=== PATIENT | male | born 1950 | race Caucasian/White ===

== ENCOUNTER → 2023-03-18 | Outpatient (CLI) | payer MEDICARE, OTHER ==
[~2023-03-18] MED LIST: ATOR40TA PO; Aspir 8181 MG PO; Avapro300 MG PO; CLOP75 PO; Fish Oil 10001000 MG PO; METO100ER PO; Multivitamin1 EAC1 PO; Omeprazole20 M1 PO; PANT20 PO; Synthroid175 MCG PO; [UNRECOGNIZED DRUG - REMARK]
== END | disposition home or self-care (01) ==
LOC: LAB SHORT 10:14 → PLD 10:14
DX: D04.61 Carcinoma in situ of skin of right upper limb, including shoulder (principal)
CPT/HCPCS: 88305

== ENCOUNTER 2024-06-14 08:58 | Day surgery (SDC) | payer MEDICARE, OTHER ==
[2024-06-14] VITALS (24 sets, daily range): BP systolic 85–144; BP diastolic 52–71
[~2024-06-14] VITALS: Ht 175.3 cm; Wt 100.5 kg
[~2024-06-14 08:58] MED LIST changes: +Lactated Ringer's 1,000 ML IV SCH; +TELM80 PO
[2024-06-14] MEDS ORDERED: Benzocaine Oral Spray 0.5ML UD ONE (10:01)
[2024-06-14] MEDS ORDERED: propofoL 20 ML IV ONE (10:01)
--- NOTE | 2024-06-14 10:26 | NUR ---
06/14/24 1025 [address] Gong HISTORY, CHART, MEDICATIONS AND ALLERGIES REVIEWED BEFORE START OF PROCEDURE. PATIENT CONFIRMS NPO STATUS AND AGREES WITH SCHEDULED PROCEDURE. 3-LEAD EKG REVIEWED WITH PHYSICIAN PRIOR TO START OF PROCEDURE. MONITOR INTACT WITH CONTINUOUS PULSE OXIMETRY,CAPNOGRAPHY, 3-LEAD EKG, INTERMITTENT BP. SUPPLEMENTAL O2 TO BE TITRATED THROUGHOUT PROCEDURE TO MAINTAIN O2 SATURATION ABOVE 90%. PATIENT DETERMINED TO BE ASA APPROPRIATE FOR PROPOFOL SEDATION PRIOR TO START OF PROCEDURE BY
[2024-06-14] MEDS ORDERED: Midazolam HCl 1MG / ML 2ML Vial ONE (10:39)
--- NOTE | 2024-06-14 11:48 | NUR ---
DISCHARGE PT A&OX4, VSS/RA, DEVYN PO, DENIES PAIN, DRESSED WITH ASSIST FROM , DC INS PROVIDED, BOTH REP UNDERSTANDING THOSE INSTRUCTIONS INCLUDING OMEPRAZOLE BID, NO NSAIDS, TYLENOL OK FOR [place]. LEFT FLOOR VIA WC WITH DC VOL WITH ALL PERSONAL POSSESSIONS.
== END 2024-06-14 11:30 | disposition home or self-care (01) ==
LOC: ORSCMMR 08:58 → ORD 10:00 → ORSCMMR 11:30
PROVIDERS: Internal Medicine Gastroenterology
PROC: 0DB78ZX Excision of Stomach, Pylorus, Via Natural or Artificial Opening Endoscopic, Diagnostic (ICD-10-PCS; principal; 2024-06-14 10:00)
PROC: 0DBL8ZX Excision of Transverse Colon, Via Natural or Artificial Opening Endoscopic, Diagnostic (ICD-10-PCS; principal; 2024-06-14 10:00)
PROC: 0DBK8ZX Excision of Ascending Colon, Via Natural or Artificial Opening Endoscopic, Diagnostic (ICD-10-PCS; principal; 2024-06-14 10:00)
PROC: 0DB98ZX Excision of Duodenum, Via Natural or Artificial Opening Endoscopic, Diagnostic (ICD-10-PCS; principal; 2024-06-14 10:00)
PROC: 0DBN8ZX Excision of Sigmoid Colon, Via Natural or Artificial Opening Endoscopic, Diagnostic (ICD-10-PCS; principal; 2024-06-14 10:00)
PROC: 0W3P8ZZ Control Bleeding in Gastrointestinal Tract, Via Natural or Artificial Opening Endoscopic (ICD-10-PCS; principal; 2024-06-14 10:00)
PROC: 0DB48ZX Excision of Esophagogastric Junction, Via Natural or Artificial Opening Endoscopic, Diagnostic (ICD-10-PCS; principal; 2024-06-14 10:00)
DX: K21.9 Gastro-esophageal reflux disease without esophagitis (principal); Z12.11 Encounter for screening for malignant neoplasm of colon; Z86.010 Personal history of colon polyps; K31.7 Polyp of stomach and duodenum; D12.4 Benign neoplasm of descending colon; D12.3 Benign neoplasm of transverse colon; K63.5 Polyp of colon; K29.80 Duodenitis without bleeding; K25.4 Chronic or unspecified gastric ulcer with hemorrhage; K64.8 Other hemorrhoids; I25.2 Old myocardial infarction; E03.9 Hypothyroidism, unspecified; Z79.02 Long term (current) use of antithrombotics/antiplatelets; Z79.899 Other long term (current) drug therapy
CPT/HCPCS: 88305; 88342; A9270; J2250; J2704; J7120

== ENCOUNTER → 2025-02-24 | Outpatient (CLI) | payer MEDICARE, OTHER ==
[~2025-02-24] MED LIST changes: -Lactated Ringer's 1,000 ML IV SCH
[2025-02-24 15:01] LABS: Microalb/Creat Ratio UR, Rand 5.372 mg/g (0.000-30.000); Microalbumin, Random Urine 6.07 mg/L (0.000-20.000)
== END ==
LOC: LAB 12:39 → LAB SHORT 12:39
PROVIDERS: Internal Medicine
DX: E11.9 Type 2 diabetes mellitus without complications (principal)
CPT/HCPCS: 82043; 82570